=== PATIENT | female | born 1975 | race Hispanic/Latino ===

== ENCOUNTER 2021-01-03 09:57 | Emergency (ER) | payer OTHER ==
[~2021-01-03] VITALS: Ht 160 cm; Wt 90.7 kg
[2021-01-03] MEDS ORDERED: CLONIDINE HCL 0.1 MG TAB PO ONE (10:45)
[2021-01-03 11:33] VITALS: BP 166/91
== END 2021-01-03 11:35 | disposition home or self-care (01) ==
LOC: ER 10:05
DX: R04.0 Epistaxis (principal); I10 Essential (primary) hypertension
CPT/HCPCS: 99283